=== PATIENT | female | born 1970 | race Caucasian/White ===

== ENCOUNTER → 2017-03-15 | Outpatient (CLI) | payer MEDICAID ==
[~2017-03-15] MED LIST: GADOBUTROL 10 ML VIAL IVP ONE
== END ==
LOC: FIMAGING 09:55
PROVIDERS: ATTEND Family Medicine
DX: R51 Headache (principal)
CPT/HCPCS: A9585

== ENCOUNTER → 2017-07-23 | Outpatient (CLI) | payer MEDICAID | LOC: FIMAGING 09:19 | PROVIDERS: ATTEND Family Medicine | DX: Z12.31 Encounter for screening mammogram for malignant neoplasm of breast (principal) ==

== ENCOUNTER 2017-12-02 00:51 | Emergency (ER) | payer MEDICAID, OTHER ==
[2017-12-02] MEDS ORDERED: NS 1,000 ML IV ONE (00:57)
--- NOTE | 2017-12-02 01:02 | EDPHY ---
H & P Time Seen by Provider: 12/02/17 00:59 HPI/ROS: HPI CHIEF COMPLAINT: Shortness of breath HISTORY OF PRESENT ILLNESS: 47-year-old female, otherwise healthy however does have a history of anxiety, presents emergency room by EMS for shortness of breath. Patient reports that she was at home having a beer and Tequila shot when she suddenly felt short of breath. Numbness and tingling around her lips. She has never had this before. It was sudden onset last about 20 min. She states that she was breathing very fast. Numbness and tingling around her lips. Denies any chest pain. Main complaint was shortness of breath. This concerned her so she called 911. She does have a history of anxiety but denies history of anxiety or panic attacks. She does states since arriving to the emergency room she feels much better. She thought maybe she was having allergic reaction but could not remember anything that may have caused her to have a reaction. No history of PE or DVT. She does take control. Past Medical History: Anxiety Past Surgical History: No recent surgery Social History: Alcohol this evening, denies illicit drugs or tobacco. Family History: Noncontributory ROS REVIEW OF SYSTEMS: A comprehensive 10 point review of systems is otherwise negative aside from elements mentioned in the history of present illness. Exam Constitutional smells of alcohol, triage nursing summary reviewed, vital signs reviewed, awake/alert. Eyes normal conjunctivae and sclera, EOMI, PERRLA. HENT normal inspection, atraumatic, moist mucus membranes, no epistaxis, neck supple/ no meningismus, no raccoon eyes. Respiratory clear to auscultation bilaterally, normal breath sounds, no respiratory distress, no wheezing. Cardiovascular rate normal, regular rhythm, no murmur, no edema, distal pulses normal. Gastrointestinal soft, non-tender, no rebound, no guarding, normal bowel sounds, no distension, no pulsatile mass. Genitourinary no CVA tenderness. Musculoskeletal no midline vertebral tenderness, full range of motion, no calf swelling, no tenderness of extremities, no meningismus, good pulses, neurovascularly intact. Skin pink, warm, & dry, no rash, skin atraumatic. Neurologic awake, alert and oriented x 3, AAOx3, moves all 4 extremities equally, motor intact, sensory intact, CN II-XII intact, normal cerebellar, normal vision, normal speech. Psychiatric normal mood/affect. Heme/Lymph/Immune no lymphadenopathy. Differential Diagnosis: Includes but is not limited to in a particular order acute anxiety, panic attack, alcohol intoxication, electrolyte disturbance, PE, pneumothorax Medical Decision Making: Plan for this patient chest x-ray rule out pneumothorax, check D-dimer for PE, EKG, basic blood work, alcohol level gentle IV fluids and re-evaluate. No evidence of allergic reaction. Clinically patient most likely has panic attack. Re-evaluation: EKG interpretation by me on record in [facility] system. Impression time of EKG 1:06 a.m., sinus rhythm rate of 81 no signs of acute ischemia no ST elevation or ST depression no significant T-wave abnormalities. No signs of cardiac arrhythmia. Serum alcohol level noted 323 at 1:40 a.m.. ED x-ray chest one view: Negative for acute cardiopulmonary disease. Image interpreted by myself. 0233: Patient re-evaluated this time resting comfortably no acute distress. Vital signs are stable. 98% room air saturation. Lungs are clear. Patient is requesting discharge. Most likely cause of shortness of breath is anxiety in the setting of acute alcohol intoxication. She has a negative D-dimer negative troponin nonischemic EKG. Her chest x-ray shows no evidence of pneumothorax. She feels well. She is eager for discharge. Return precautions discussed. She will need a safe ride home. Source: Patient, EMS Constitutional: Initial Vital Signs Temperature (C) 36.5 C 12/02/17 00:59 Heart Rate 88 12/02/17 00:59 Respiratory Rate 18 12/02/17 00:59 Blood Pressure 157/84 H 12/02/17 00:59 O2 Sat (%) 98 12/02/17 00:59 O2 Delivery Mode Room Air Allergies/Adverse Reactions: No Known Allergies Allergy (Unverified 12/02/17 00:57) Home Medications: Medication Instructions Recorded Adderall 10 MG (*) 12/02/17 Atenolol 12/02/17 Bcp 12/02/17 busPIRone 12/02/17 traZODone 12/02/17 Medical Decision Making - Data Points Laboratory Results: Laboratory Results 12/02/17 01:02 12/02/17 01:02 12/02/17 12/02/17 12/02/17 01:49 01:02 01:02 WBC RBC Hgb Hct MCV MCH MCHC RDW Plt Count MPV Neut % (Auto) Lymph % (Auto) Kings % (Auto) Eos % (Auto) Baso % (Auto) Nucleat RBC Rel Count Absolute Neuts (auto) Absolute Lymphs (auto) Absolute Monos (auto) Absolute Eos (auto) Absolute Basos (auto) Absolute Nucleated RBC Immature Gran % Immature Gran # D-Dimer < 0.27 ug/mLFEU ug/mLFEU (0.00-0.50) Sodium Potassium Chloride Carbon Dioxide Anion Gap BUN Creatinine Estimated GFR Glucose Calcium POC Troponin I 0.00 ng/mL ng/mL (0.00-0.08) Beta HCG, Qual NEGATIVE Ethyl Alcohol 12/02/17 12/02/17 01:02 01:02 WBC 5.30 10^3/uL 10^3/uL (3.80-9.50) RBC 4.41 10^6/uL 10^6/uL (4.18-5.33) Hgb 14.4 g/dL g/dL (12.6-16.3) Hct 41.3 % % (38.0-47.0) MCV 93.7 fL fL (81.5-99.8) MCH 32.7 pg pg (27.9-34.1) MCHC 34.9 g/dL g/dL (32.4-36.7) RDW 12.9 % % (11.5-15.2) Plt Count 241 10^3/uL 10^3/uL (150-400) MPV 8.8 fL fL (8.7-11.7) Neut % (Auto) 49.6 % % (39.3-74.2) Lymph % (Auto) 42.1 % % (15.0-45.0) Kings % (Auto) 6.4 % % (4.5-13.0) Eos % (Auto) 0.8 % % (0.6-7.6) Baso % (Auto) 0.9 % % (0.3-1.7) Nucleat RBC Rel Count 0.0 % % (0.0-0.2) Absolute Neuts (auto) 2.63 10^3/uL 10^3/uL (1.70-6.50) Absolute Lymphs (auto) 2.23 10^3/uL 10^3/uL (1.00-3.00) Absolute Monos (auto) 0.34 10^3/uL 10^3/uL (0.30-0.80) Absolute Eos (auto) 0.04 10^3/uL 10^3/uL (0.03-0.40) Absolute Basos (auto) 0.05 10^3/uL 10^3/uL (0.02-0.10) Absolute Nucleated RBC 0.00 10^3/uL 10^3/uL (0-0.01) Immature Gran % 0.2 % % (0.0-1.1) Immature Gran # 0.01 10^3/uL 10^3/uL (0.00-0.10) D-Dimer Sodium 141 mEq/L mEq/L (135-145) Potassium 4.0 mEq/L mEq/L (3.3-5.0) Chloride 109 mEq/L mEq/L (97-110) Carbon Dioxide 24 mEq/l mEq/l (22-31) Anion Gap 8 mEq/L mEq/L (8-16) BUN 15 mg/dL mg/dL (7-23) Creatinine 1.0 mg/dL mg/dL (0.6-1.0) Estimated GFR 59 Glucose 92 mg/dL mg/dL (70-100) Calcium 9.6 mg/dL mg/dL (8.5-10.4) POC Troponin I Beta HCG, Qual Ethyl Alcohol 323 mg/dL H mg/dL (0-10) Medications Given: Discontinued Medications Sodium Chloride (Ns) 1,000 mls @ 0 mls/hr IV EDNOW ONE; Wide Open PRN Reason: Protocol Stop: 12/02/17 00:58 Last Admin: 12/02/17 01:10 Dose: 1,000 mls Point of Care Test Results: Chemistry 12/02/17 01:49 POC Troponin I 0.00 ng/mL ng/mL (0.00-0.08) Departure - Departure Disposition: Home, Routine, Self-Care Clinical Impression: Anxiety Alcohol intoxication Qualifiers: Complication of substance-induced condition: uncomplicated Qualified Code(s): F10.920 - Alcohol use, unspecified with intoxication, uncomplicated Condition: Good Instructions: Alcohol Intoxication (ED), Anxiety (ED) Referrals: NONE *PRIMARY CARE P,. [Primary Care Provider] - As per Instructions
--- NOTE | 2017-12-02 01:08 | CPEKG ---
Heart Rate: 81 RR Interval: 741 P-R Interval: 176 QRSD Interval: 86 QT Interval: 364 QTC Interval: 423 P [place]: 74 QRS [place]: 31 T Wave [place]: 41 EKG Severity - NORMAL ECG - EKG Impression: SINUS RHYTHM Electronically Signed By: Tan Huerta 02-Dec-2017 06:42:39
[2017-12-02 01:14] LABS: PLATELET COUNT 241 10^3/uL (150-400)
[2017-12-02 02:42] VITALS: BP 142/114
== END 2017-12-02 02:41 | disposition home or self-care (01) ==
LOC: EDUNIT#
DX: F41.9 Anxiety disorder, unspecified (principal); F10.920 Alcohol use, unspecified with intoxication, uncomplicated; E86.9 Volume depletion, unspecified
CPT/HCPCS: 84484-PO; G0480

== ENCOUNTER 2018-01-25 23:11 | Emergency (ER) | payer MEDICAID, OTHER ==
--- NOTE | 2018-01-25 23:21 | EDPHY ---
H & P Stated Complaint: 01/05 concussion, reoccuring concussion 01/15, R forehead pain Time Seen by Provider: 01/25/18 23:20 HPI/ROS: HPI CHIEF COMPLAINT: Head injury, right forehead pain. HISTORY OF PRESENT ILLNESS: This is a 47-year-old female, she has a history of anxiety, presents to the emergency room with right forehead pain and right frontal headache. Patient states she initially hit her head on January 05 and suffered a concussion. She states she was at work on January 15 and a pipe that she was working on "blew up in her face"she states that she had safety goggles on but something struck her in the head. Since then she has had ongoing right forehead pain. Concerned she may have something wrong inside her skull like brain contusion or trauma. She presents emergency room ongoing pain and request a CT scan of her head. Past Medical History: History of anxiety Past Surgical History: No recent surgery Social History: Denies drugs alcohol tobacco. Family History: Noncontributory. ROS REVIEW OF SYSTEMS: 10 Systems were reviewed and negative with the exception of the elements mentioned in the history of present illness. Exam Constitutional appears well nontoxic no acute distress, GCS 15 triage nursing summary reviewed, vital signs reviewed, awake/alert. Eyes normal conjunctivae and sclera, EOMI, PERRLA. HENT head/neck atraumatic on exam. No visible trauma. normal inspection, atraumatic, moist mucus membranes, no epistaxis, neck supple/ no meningismus, no raccoon eyes. Respiratory clear to auscultation bilaterally, normal breath sounds, no respiratory distress, no wheezing. Cardiovascular rate normal, regular rhythm, no murmur, no edema, distal pulses normal. Gastrointestinal soft, non-tender, no rebound, no guarding, normal bowel sounds, no distension, no pulsatile mass. Genitourinary no CVA tenderness. Musculoskeletal no midline vertebral tenderness, full range of motion, no calf swelling, no tenderness of extremities, no meningismus, good pulses, neurovascularly intact. Skin pink, warm, & dry, no rash, skin atraumatic. Neurologic awake, alert and oriented x 3, AAOx3, moves all 4 extremities equally, motor intact, sensory intact, CN II-XII intact, normal cerebellar, normal vision, normal speech. Psychiatric normal mood/affect. Heme/Lymph/Immune no lymphadenopathy. Differential Diagnosis: Includes but is not limited to in a particular order closed-head injury, concussion, intracranial bleed, subdural, traumatic subarachnoid, skull fracture, soft tissue injury Medical Decision Making: Plan for this patient she is requesting CT scan of her head to evaluate for intracranial trauma however clinically her injury happened on January 15 it is now January 25. I think it is unlikely she has intracranial trauma I discussed risk versus benefit about CT scan of her head. However she would like the CT scan of her head. Clinically I do feel that she most likely has a concussion concussion syndrome. I do recommend she has close follow-up with concussion specialist or her primary care doctor. Re-evaluation: CT head without contrast negative for acute traumatic injury. No evidence of brain bleed contusion or mass. Source: Patient - Personal History LMP (Females 10-55): 15-21 Days Ago Current Tetanus Diphtheria and Acellular Pertussis (TDAP): Yes Tetanus Vaccine Date: 2017 - Medical/Surgical History Hx Asthma: No Hx Chronic Respiratory Disease: No Hx Diabetes: No Hx Cardiac Disease: No Hx Renal Disease: No Hx Cirrhosis: No Hx Alcoholism: No Hx HIV/AIDS: No Hx Splenectomy or Spleen Trauma: No Other PMH: anxiety, c-sec, PTSD - Social History Smoking Status: Never smoked Constitutional: Initial Vital Signs Temperature (C) 36.7 C 01/25/18 23:15 Heart Rate 87 01/25/18 23:15 Respiratory Rate 18 01/25/18 23:15 Blood Pressure 143/110 H 01/25/18 23:15 O2 Sat (%) 97 01/25/18 23:15 O2 Delivery Mode Room Air Allergies/Adverse Reactions: No Known Allergies Allergy (Unverified 01/25/18 23:15) Home Medications: Medication Instructions Recorded Adderall 10 MG (*) 12/02/17 Atenolol 12/02/17 Bcp 12/02/17 busPIRone 12/02/17 traZODone 12/02/17 Departure - Departure Disposition: Home, Routine, Self-Care Clinical Impression: Concussion Qualifiers: Encounter type: initial encounter Loss of consciousness presence/duration: without LOC Qualified Code(s): S06.0X0A - Concussion without loss of consciousness, initial encounter Condition: Good Instructions: Concussion (ED), Head Injury (ED) Additional Instructions: 1. Take it easy over the next week. Rest. Stay well-hydrated. 2. No vigorous activity. 3. Follow up with your primary care doctor/concussion specialist. Referrals: NONE *PRIMARY CARE P,. [Primary Care Provider] - As per Instructions Kimberly Hu MD [Medical Doctor] - As per Instructions
[2018-01-26 00:48] VITALS: BP 133/75
== END 2018-01-26 00:47 | disposition home or self-care (01) ==
DX: S06.0X0A Concussion without loss of consciousness, initial encounter (principal); R40.2412 Glasgow coma scale score 13-15, at arrival to emergency department; F41.9 Anxiety disorder, unspecified; W22.8XXA Striking against or struck by other objects, initial encounter; Y99.0 Civilian activity done for income or pay

== ENCOUNTER → 2018-02-11 | Outpatient (CLI) | payer MEDICAID | LOC: FCPNEURO 21:00 | PROVIDERS: ATTEND Internal Medicine Sleep Medicine | DX: G47.63 Sleep related bruxism (principal) ==

== ENCOUNTER → 2018-07-24 | Outpatient (CLI) | payer MEDICAID | LOC: FIMAGING 08:40 | PROVIDERS: ATTEND Family Medicine | DX: Z12.31 Encounter for screening mammogram for malignant neoplasm of breast (principal) ==

== ENCOUNTER → 2018-07-26 | Outpatient (CLI) | payer MEDICAID | LOC: FIMAGING 14:27 ==

== ENCOUNTER 2018-08-18 19:14 | Emergency (ER) | payer MEDICAID ==
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
[2018-08-18 21:37] VITALS: BP 137/88
== END 2018-08-18 21:35 | disposition home or self-care (01) ==
DX: S80.812A Abrasion, left lower leg, initial encounter (principal); S06.0X1A Concussion with loss of consciousness of 30 minutes or less, initial encounter; V18.0XXA Pedal cycle driver injured in noncollision transport accident in nontraffic accident, initial encounter; Y93.55 Activity, bike riding; Y92.830 Public park as the place of occurrence of the external cause